=== PATIENT | male | born 1990 ===

== ENCOUNTER 2018-02-04 10:28 | Emergency (ER) | payer BC ==
[2018-02-04 10:40] VITALS: BP 145/97; PULSE 79; RESP 20; TEMP 98.1; O2SAT 100
--- NOTE | 2018-02-04 10:54 | RAD ---
PROCEDURE: Left Ankle Radiographs. HISTORY: PAIN FAST TRACK 4 COMPARISON: None FINDINGS: BONES: No acute fracture. JOINTS: Ankle mortise maintained. Talar dome intact SOFT TISSUES: Normal. OTHER FINDINGS: None. IMPRESSION: No demonstrated fracture or dislocation.
--- NOTE | 2018-02-04 11:46 | RAD ---
PROCEDURE: Left Foot Radiographs. HISTORY: L foot/ankle injury, pain in the top, lateral foot COMPARISON: None. FINDINGS: BONES: Tiny ossific fragment dorsal to the navicular, best seen on the lateral view. JOINTS: Unremarkable. SOFT TISSUES: Mild dorsal soft tissue swelling. OTHER FINDINGS: None. IMPRESSION: Tiny ossific fragment dorsal to the navicular, best seen on the lateral view, possibly representing avulsion fracture. Clinical correlation is recommended.
--- NOTE | 2018-02-04 12:02 | C.PDOC ---
History Of Present Illness 27 y/o male presents to the ED complaining of left ankle pain and swelling since yesterday. States he twisted it playing cricket yesterday. Otherwise patient denies any pain to the calf or knee. No changes in sensation or other injury. Time Seen by Provider: 02/04/18 11:16 Chief Complaint (Nursing): Lower Extremity Problem/Injury History Per: Patient History/Exam Limitations: no limitations Onset/Duration Of Symptoms: Days Current Symptoms Are (Timing): Still Present Past Medical History Reviewed: Historical Data, Nursing Documentation, Vital Signs Vital Signs: Last Vital Signs Temp 98.1 F 02/04/18 10:31 Pulse 79 02/04/18 10:31 Resp 20 02/04/18 10:31 BP 145/97 H 02/04/18 10:31 Pulse Ox 100 02/04/18 12:02 - Medical History PMH: No Chronic Diseases Surgical History: No Surg Hx Family History: States: No Known Family Hx - Social History Hx Tobacco Use: Yes Hx Alcohol Use: Yes Hx Substance Use: No - Immunization History Hx Tetanus Toxoid Vaccination: No Hx Influenza Vaccination: No Hx Pneumococcal Vaccination: No Review Of Systems Except As Marked, All Systems Reviewed And Found Negative. Musculoskeletal: Positive for: Foot Pain (left ankle) Neurological: Negative for: Weakness, Numbness Physical Exam - Physical Exam Appears: Non-toxic, No Acute Distress Skin: Normal Color, Warm, Dry Head: Atraumatic, Normacephalic Eye(s): bilateral: Normal Inspection Oral Mucosa: Moist Neck: Normal ROM Chest: Symmetrical Extremity: Tenderness (Tenderness across the dorsum of left foot, extending toward lateral foot), Capillary Refill (< 2 sec), No Deformity, Swelling ( Minimal swelling to left lateral malleolus) Pulses: Left Dorsalis Pedis: Normal, Right Dorsalis Pedis: Normal Neurological/Psych: Oriented x3, Normal Speech, Normal Sensation ED Course And Treatment O2 Sat by Pulse Oximetry: 100 (RA) Pulse Ox Interpretation: Normal - Other Rad XR L ANKLE X-Ray: Viewed By Me, Read By Radiologist Interpretation: FINDINGS: BONES: No acute fracture. JOINTS: Ankle mortise maintained. Talar dome intact. SOFT TISSUES: Normal. OTHER FINDINGS: None. IMPRESSION: No demonstrated fracture or dislocation. XR L FOOT X-Ray: Viewed By Me, Read By Radiologist Interpretation: FINDINGS: BONES: Tiny ossific fragment dorsal to the navicular , best seen on the lateral view. JOINTS: Unremarkable. SOFT TISSUES: Mild dorsal soft tissue swelling. OTHER FINDINGS: None. IMPRESSION: Tiny ossific fragment dorsal to the navicular, best seen on the lateral view, possibly representing avulsion fracture. Clinical correlation is recommended. Progress Note: Patient given Motrin PO. Informed of x-ray results demonstrating likely avulsion fracture. Posterior splint applied by engineering technical writer and checked by me. Patient is stable for d/c home, and referred to podiatry for follow up Disposition Counseled Patient/Family Regarding: Studies Performed, Diagnosis, Need For Followup, Rx Given - Disposition Referrals: Hitesh Mendez DPM [Staff Provider] - Disposition: HOME/ ROUTINE Disposition Time: 12:00 Condition: STABLE Additional Instructions: Follow up with Bookstore Manager within 1-2 days. Return to ED if feel worse. Prescriptions: Ibuprofen [Motrin Tab] 600 mg PO Q8 #30 tab Famotidine [Pepcid] 20 mg PO BID #20 tab Instructions: Foot Avulsion Fracture (DC) Forms: [email or web address] (L[place]anese), Work Excuse - Clinical Impression Clinical Impression: Avulsion fracture of navicular bone of foot - PA / [employer] / Resident Statement MD/DO has reviewed & agrees with the documentation as recorded. - Scribe Statement The provider has reviewed the documentation as recorded by the Scribe (Jessie Francois) All medical record entries made by the Scribe were at my direction and personally dictated by me. I have reviewed the chart and agree that the record accurately reflects my personal performance of the history, physical exam, medical decision making, and the department course for this patient. I have also personally directed, reviewed, and agree with the discharge instructions and disposition.
== END 2018-02-04 12:28 | disposition home or self-care (01) ==
LOC: C.ER 10:28
DX: S92.252A Displaced fracture of navicular [scaphoid] of left foot, initial encounter for closed fracture (principal); X50.9XXA Other and unspecified overexertion or strenuous movements or postures, initial encounter; Y93.69 Activity, other involving other sports and athletics played as a team or group